=== PATIENT | male | born 1975 | race Caucasian/White ===

== ENCOUNTER → 2021-03-13 | Outpatient (CLI) | payer OTHER ==
[~2021-03-13] MED LIST: IOHEXOL 240 MG/ML 50ML VIAL. ONE; IOHEXOL 240 MG/ML 50ML VIAL. PO ONE; IOHEXOL 300 MG/ML 75 ML VIAL. IV ONE
--- NOTE | 2021-03-13 11:15 | RAD ---
INDICATION: Reason: DIFFUSE ABDOMINAL PAIN, VASECTOMY. 75MLS OMNI 300 / Spl. Instructions: CONTRAST O RDERED, DRINKING 930-1030 / History: COMPARISON: None. TECHNIQUE: Axial CT images were obtained through the abdomen and pelvis with intravenous contrast. One or more of the following individualized dose reduction techniques were utilized for this examinat ion: 1. Automated exposure control; 2. Adjustment of the mA and/or kV according to patient size; 3 . Use of iterative reconstruction technique. FINDINGS: Vascular: No abdominal aortic aneurysm. Hepatobiliary: No intrahepatic biliary duct dilation. Pancreas: No peripancreatic edema. Spleen: Spleen unremarkable. Renal: No hydronephrosis. Bladder: No definite inflammatory changes to the bladder. Gastrointestinal: Appendix measures up to 6 mm without adjacent inflammatory changes. No dilated loop s of bowel to suggest obstruction. Degenerative changes the spine with mild kyphosis. IMPRESSION: * No evidence of bowel obstruction. The appendix is prominent in size but there is no definite charlee cent inflammatory changes therefore this does not fulfill the CT criteria for appendicitis. * No hydronephrosis. Electronically signed by: Oscar Muhammad MD (03/13/2021 11:13 AM) [id number]
== END ==
LOC: CT 09:11
PROVIDERS: ATTEND Clinical Nurse Specialist Family Health
DX: R10.9 Unspecified abdominal pain (principal); M40.209 Unspecified kyphosis, site unspecified
CPT/HCPCS: 74177; Q9967